=== PATIENT | female | born 1980 | race Caucasian/White ===

== ENCOUNTER 2017-11-20 21:41 | Emergency (ER) | payer SELFPAY ==
[2017-11-20] MEDS ORDERED: MECLIZINE HCL 25 MG TABLET PO ONE (23:28)
[2017-11-20] MEDS ORDERED: AMOXICILLIN TRIHYDRATE 500 MG CAPSULE PO ONE (23:28)
[2017-11-20 23:31] LABS: APPEARANCE,URINE CLEAR; BILIRUBIN,URINE NEGATIVE (NEGATIVE); COLOR,URINE STRAW; GLUCOSE, URINE NEGATIVE (NEGATIVE); KETONES,URINE NEGATIVE (NEGATIVE); LEUKOCYTE ESTERASE,URINE NEGATIVE (NEGATIVE); NITRITE,URINE NEGATIVE (NEGATIVE); PROTEIN,URINE NEGATIVE (NEGATIVE); URINE SPECIFIC GRAVITY 1.006; UROBILINOGEN,URINE NEGATIVE mg/dL (<2.0)
--- NOTE | 2017-11-20 23:31 | ER Document Report ---
ED General - General Chief Complaint: Dizziness Stated Complaint: WEAKNESS Time Seen by Provider: 11/20/17 23:13 Notes: Patient is a 37-year-old female without chronic medical problems who presents with 24 hours of dizziness. Patient states this is a sensation of the room spinning. She states that it is constant, worsened by movement of her head. She states that the symptoms started gradually have gotten progressively worse since onset. She has some associated pain to her right ear and right side of her neck. She does describe this as a throbbing, aching, constant pain. She has not tried anything for improvement of her symptoms. She denies any history of similar symptoms in the past. She is visiting from out of town so has been unable to see her primary doctor. She denies any focal weakness, numbness, difficulty ambulating, headache or altered mental status. TRAVEL OUTSIDE OF THE [place] IN LAST 30 DAYS: No Past Medical History - General Information source: Patient - Social History Smoking Status: Never Smoker Frequency of alcohol use: None Drug Abuse: None Lives with: Family Family History: Reviewed & Not Pertinent Review of Systems - Review of Systems Notes: Constitutional: Negative for fever. HENT: Positive for right ear pain Eyes: Negative for visual changes. Cardiovascular: Negative for chest pain. Respiratory: Negative for shortness of breath. Gastrointestinal: Negative for abdominal pain, vomiting or diarrhea. Genitourinary: Negative for dysuria. Musculoskeletal: Positive for right-sided neck pain Skin: Negative for rash. Neurological: Positive for vertigo 10 point ROS negative except as marked above and in HPI. Physical Exam - Vital signs Vitals: Temp Pulse Resp BP Pulse Ox 98.8 F 67 16 148/83 H 99 11/20/17 22:02 11/20/17 22:02 11/20/17 22:02 11/20/17 22:02 11/20/17 22:02 Interpretation: Hypertensive Notes: PHYSICAL EXAMINATION: GENERAL: Well-appearing, well-nourished and in no acute distress. HEAD: Atraumatic, normocephalic. EYES: Pupils equal round and reactive to light, extraocular movements intact, sclera anicteric, conjunctiva are normal. ENT: nares patent, oropharynx clear without exudates. Moist mucous membranes. Right TM with purulent effusion and bulging. Left TM clear. NECK: Normal range of motion, supple without lymphadenopathy LUNGS: Breath sounds clear to auscultation bilaterally and equal. No wheezes rales or rhonchi. HEART: Regular rate and rhythm without murmurs ABDOMEN: Soft, nontender, normoactive bowel sounds. No guarding, no rebound. No masses appreciated. EXTREMITIES: Normal range of motion, no pitting or edema. No cyanosis. NEUROLOGICAL: Face symmetric. Tongue protrudes midline. Extraocular motions intact. Rightward horizontal nystagmus present. Pupils are 2 mm and equally reactive. Normal speech, normal gait. 5 out of 5 strength in both the distal and proximal upper and lower extremities bilaterally. Sensation is grossly intact throughout. Finger to nose testing normal. Pronator drift normal. PSYCH: Moderately anxious SKIN: Warm, Dry, normal turgor, no rashes or lesions noted. Course - Re-evaluation Re-evalutation: 11/20/17 23:29 Presentation of vertigo that appears most consistent with peripheral vertigo from a right-sided otitis media. Patient has no abnormal findings on exam. Normal cerebellar testing, steady even gait. Able to walk on heels and toes. Normal proprioception. Patient is not an elevated risk for a cerebellar infarction given age, absence of significant risk factors. Right TM visualized with purulent effusion and bulging. The patient also has posterior cervical chain lymphadenopathy again likely secondary to the otitis media. Patient will be treated with meclizine and amoxicillin. I do not believe neurologic imaging is indicated at this time based on physical examination and clinical history. At this time will discharge with return precautions and follow-up recommendations. Verbal discharge instructions given a the bedside and opportunity for questions given. Medication warnings reviewed. Patient is in agreement with this plan and has verbalized understanding of return precautions and the need for primary care follow-up in the next 24-72 hours. - Vital Signs Vital signs: Temp Pulse Resp BP Pulse Ox 97.5 F 64 16 117/82 99 11/21/17 00:06 11/21/17 00:06 11/21/17 00:06 11/21/17 00:06 11/21/17 00:06 Discharge - Discharge Clinical Impression: Right otitis media Qualifiers: Otitis media type: suppurative Chronicity: acute Recurrence: not specified as recurrent Spontaneous tympanic membrane rupture: without spontaneous rupture Qualified Code(s): H66.001 - Acute suppurative otitis media without spontaneous rupture of ear drum, right ear Peripheral vertigo Qualifiers: Laterality: right Qualified Code(s): H81.391 - Other peripheral vertigo, right ear Condition: Good Disposition: HOME, SELF-CARE Additional Instructions: You were seen today for ear pain and have an acute ear infection. This is also likely causing your dizzy spells. You may take the meclizine that has been prescribed as needed for vertigo. Please take the antibiotic that has been prescribed until it is completed even if you are feeling better before you have finished all the antibiotics. For your pain: Take ibuprofen 600 mg and acetaminophen 1000 mg every 6 hours together as needed for pain. Return if you have worsening of your pain, loss of hearing in the affected ear, worsening facial pain, headaches, pass out, or any other symptoms that are worrisome to you. Prescriptions: Meclizine HCl 25 mg PO Q6HP PRN #30 tablet PRN Reason: Amoxicillin 1 tab PO TID #30 tab
[2017-11-21 00:07] VITALS: BP 117/82
== END 2017-11-21 00:06 | disposition home or self-care (01) ==
LOC: ER 21:41
DX: H66.001 Acute suppurative otitis media without spontaneous rupture of ear drum, right ear (principal); H81.391 Other peripheral vertigo, right ear; H92.01 Otalgia, right ear; M54.2 Cervicalgia
CPT/HCPCS: 81001; 81025; 99284